=== PATIENT | female | born 1980 | race American Indian/Alaskan Native ===

== ENCOUNTER 2021-04-27 20:09 | Emergency (ER) | payer MEDICAID | END 2021-04-27 20:15 | disposition left against medical advice (07) | LOC: ED 20:09 | DX: S49.90XA Unspecified injury of shoulder and upper arm, unspecified arm, initial encounter (principal); Z53.21 Procedure and treatment not carried out due to patient leaving prior to being seen by health care provider; X58.XXXA Exposure to other specified factors, initial encounter ==